=== PATIENT | male | born 1970 | race Caucasian/White ===

== ENCOUNTER 2020-11-09 12:41 | Outpatient (CLI) | payer BC | END 2020-11-09 12:42 | disposition home or self-care (01) | LOC: BICRAD 12:41 | PROVIDERS: ATTEND Nurse Practitioner Family | DX: M25.551 Pain in right hip (principal); R26.89 Other abnormalities of gait and mobility; S79.911A Unspecified injury of right hip, initial encounter; M16.11 Unilateral primary osteoarthritis, right hip ==